=== PATIENT | female | born 1995 | race African-American/Black ===

== ENCOUNTER 2019-06-05 15:23 | Emergency (ER) | payer OTHER ==
[~2019-06-05] VITALS: Ht 157.5 cm; Wt 64.9 kg
[~2019-06-05 15:23] MED LIST: PROAIR HFA8.5 GM IH; QVAR8.7 G1; VIGAMOX3 M1 OP; ZYRTEC PO
[2019-06-05 15:44] LABS: URINE BILIRUBIN NEGATIVE (Negative); URINE BLOOD NEGATIVE (Negative); URINE CLARITY CLEAR; URINE COLOR YELLOW; URINE GLUCOSE-RANDOM* NEGATIVE (Negative); URINE KETONES TRACE (Negative); URINE LEUKOCYTES-REFLEX NEGATIVE (Negative); URINE NITRITE-REFLEX NEGATIVE (Negative); URINE PROTEIN (DIPSTICK) NEGATIVE (Negative); URINE SPECIFIC GRAVITY <= 1.005 (1.005-1.035); URINE UROBILINOGEN 0.2 E.U./dl (0.2-1.0)
[2019-06-05 15:52] LABS: AMP/METHAMP Negative (Negative); BARBITURATES Negative (Negative); BENZODIAZEPINES Negative (Negative); COCAINE Negative (Negative); METHADONE Negative (Negative); OPIATES Negative (Negative); PCP Negative (Negative)
[2019-06-05 16:00] LABS: HEMATOCRIT 31.7 % (37.0-47.0); HEMOGLOBIN 10.5 gm/dL (12.0-15.0); MCH 27.1 pg (26.0-34.0); MCHC 33.1 g/dL (28.0-37.0); MCV 81.6 fL (80.0-100.0); PLATELET COUNT 169 thou/uL (150-400); RBC 3.89 mil/uL (4.20-5.00); RDW 13.5 % (10.5-14.5); WBC 5.9 thou/uL (4.0-11.0)
[2019-06-05 16:07] LABS: CALCIUM 9.4 mg/dL (8.5-10.1); POTASSIUM 3.3 mmol/L (3.5-5.1)
[2019-06-05 16:13] LABS: ALBUMIN 3.1 g/dL (3.4-5.0); TOTAL BILIRUBIN 0.8 mg/dL (<0.1-1.0); TOTAL PROTEIN 7.7 g/dL (6.4-8.2)
[2019-06-05 16:26] LABS: ABSOLUTE NEUTROPHILS 3.8 thou/uL (1.4-8.2)
[2019-06-05 18:34] LABS: CASTS None Seen /LPF (None Seen); CRYSTALS None Seen /LPF (None Seen); SQUAMOUS 4-10 Moderate /LPF (0-3); URINE RBC None Seen /HPF (0-2); URINE WBC 0-5 Rare /HPF (0-5)
[2019-06-05] MEDS ORDERED: ZOFRAN ODT4 MG PO (18:45)
[2019-06-05] MEDS ORDERED: KEFLEX500 M1 PO (18:45)
[2019-06-05 18:59] VITALS: BP 97/46
== END 2019-06-05 18:59 | disposition home or self-care (01) ==
LOC: ER 15:23
PROVIDERS: Emergency Medicine; Nurse Practitioner Family
DX: N10 Acute pyelonephritis (principal); J45.909 Unspecified asthma, uncomplicated